=== PATIENT | female | born 1985 | race African-American/Black ===

== ENCOUNTER 2017-01-02 20:37 | Emergency (ER) | payer MEDICAID | END 2017-01-02 22:45 | disposition home or self-care (01) | LOC: D.ER 20:37 | DX: S90.121A Contusion of right lesser toe(s) without damage to nail, initial encounter (principal); W10.9XXA Fall (on) (from) unspecified stairs and steps, initial encounter; Y93.89 Activity, other specified; Y92.029 Unspecified place in mobile home as the place of occurrence of the external cause; F17.200 Nicotine dependence, unspecified, uncomplicated ==

== ENCOUNTER 2017-03-02 04:10 | Emergency (ER) | payer MEDICAID | END 2017-03-02 05:16 | disposition home or self-care (01) | LOC: D.ER 04:10 | DX: M25.561 Pain in right knee (principal); F17.200 Nicotine dependence, unspecified, uncomplicated ==

== ENCOUNTER 2017-04-05 09:46 | Emergency (ER) | payer MEDICAID ==
[2017-04-05 10:41] LABS: BASOPHILS 0 % (0-2); EOSINOPHILS 0.5 % (0-7); HEMATOCRIT 38.8 % (36.0-48.0); HEMOGLOBIN 12.7 g/dL (12-16); IMMATURE GRANULOCYTES 0.1 % (0-5); LYMPHOCYTES 24.7 % (15-50); MCH 27.7 pg (26.0-34.0); MCHC 32.7 g/dL (31.0-37.0); MCV 84.7 fL (80.0-100.0); MEAN PLATELET VOLUME 11.2 fL (7.4-10.4); MONOCYTES 6.4 % (2-11); NEUTROPHILS 68.3 % (40-80); RBC 4.58 10x6/uL (4.00-5.40); RDW 14.3 % (11.5-14.5); WBC 7.8 10x3/uL (4.8-10.8)
[2017-04-05 10:54] LABS: PLATELET COUNT 212 10x3/uL (130-400)
[2017-04-05 11:00] LABS: ALBUMIN 3.9 g/dL (3.4-5.0); ALKALINE PHOSPHATASE 43 U/L (46-116); ALT (SGPT) 19 U/L (10-68); BILIRUBIN - TOTAL 0.47 mg/dL (0.2-1.3); CALC OSMOLALITY 272 mosm/kg (275-300); CALCIUM 9.5 mg/dL (8.5-10.1); CARBON DIOXIDE 28.6 mmol/L (21.0-32.0); CHLORIDE - SERUM 102 mmol/L (98-107); CREATININE - SERUM 0.6 mg/dL (0.6-1.3); GLUCOSE 99 mg/dL (74-106); POTASSIUM - SERUM 3.4 mmol/L (3.5-5.1); PROTEIN - SERUM 7.6 g/dL (6.4-8.2); SODIUM 137 mmol/L (136-145); UREA NITROGEN 10 mg/dL (7-18); eGFR NON AFRICAN AMERICAN > 90 mL/min (90-120)
[2017-04-05 11:08] LABS: HCG URINE NEGATIVE (NEGATIVE)
[2017-04-05 11:12] LABS: APPEARANCE HAZY (CLEAR); BILIRUBIN NEGATIVE (NEGATIVE); COLOR YELLOW (YELLOW); GLUCOSE NEGATIVE (NEGATIVE); KETONE MODERATE mg/dL (NEGATIVE); NITRITE NEGATIVE (NEGATIVE); PROTEIN TRACE mg/dL (NEGATIVE); SPECIFIC GRAVITY 1.015 (1.005-1.020); UDS - AMPHET NEGATIVE QUAL (NEGATIVE); UDS - BARB NEGATIVE QUAL (NEGATIVE); UDS - BENZO NEGATIVE QUAL (NEGATIVE); UDS - COCAINE NEGATIVE QUAL (NEGATIVE); UDS - OPIATE NEGATIVE QUAL (NEGATIVE); UDS - PCP NEGATIVE QUAL (NEGATIVE); UDS - THC POSITIVE QUAL (NEGATIVE)
[2017-04-05 11:13] LABS: BACTERIA MODERATE /hpf (NONE SEEN); MUCUS >1+ /lpf (NONE SEEN); RED CELLS - URINE 0-5 /hpf (0-5); WAXY CAST RARE /lpf (NONE SEEN); WHITE CELLS - URINE 0-5 /hpf (0-5)
[2017-04-05 11:14] LABS: EPITHELIAL CELLS 0-5 /hpf (0-5)
== END 2017-04-05 14:30 | disposition home or self-care (01) ==
LOC: D.ER 09:46
PROVIDERS: Emergency Medicine
DX: F32.9 Major depressive disorder, single episode, unspecified (principal); F17.200 Nicotine dependence, unspecified, uncomplicated

== ENCOUNTER 2017-11-22 06:22 | Emergency (ER) | payer MEDICAID ==
[~2017-11-22] VITALS: Ht 165.1 cm; Wt 77.3 kg
[2017-11-22 06:28] VITALS: Ht 165.1 cm; Wt 77.3 kg
[2017-11-22 08:31] VITALS: BP 122/73
== END 2017-11-22 08:32 | disposition home or self-care (01) ==
LOC: D.ER 06:22
DX: R11.10 Vomiting, unspecified (principal); R10.9 Unspecified abdominal pain; R19.7 Diarrhea, unspecified; F17.200 Nicotine dependence, unspecified, uncomplicated

== ENCOUNTER 2017-11-24 07:40 | Emergency (ER) | payer MEDICAID ==
[~2017-11-24] VITALS: Ht 165.1 cm; Wt 72.7 kg
[2017-11-24 07:48] VITALS: Ht 165.1 cm; Wt 72.7 kg
[2017-11-24 08:23] LABS: BASOPHILS 0 % (0-2); EOSINOPHILS 4.8 % (0-7); HEMATOCRIT 38.9 % (36.0-48.0); IMMATURE GRANULOCYTES 0.2 % (0-5); LYMPHOCYTES 23.3 % (15-50); MCH 27.7 pg (26.0-34.0); MCHC 33.4 g/dL (31.0-37.0); MCV 82.8 fL (80.0-100.0); MEAN PLATELET VOLUME 10.7 fL (7.4-10.4); MONOCYTES 11.3 % (2-11); NEUTROPHILS 60.4 % (40-80); PLATELET COUNT 191 10x3/uL (130-400); RDW 14.4 % (11.5-14.5); WBC 5.4 10x3/uL (4.8-10.8)
[2017-11-24 08:43] LABS: ALBUMIN 3.5 g/dL (3.4-5.0); ALKALINE PHOSPHATASE 47 U/L (46-116); ALT (SGPT) 15 U/L (10-68); AMYLASE - SERUM 42 U/L (25-115); BILIRUBIN - TOTAL 0.46 mg/dL (0.2-1.3); CALC OSMOLALITY 268 mosm/kg (275-300); CALCIUM 8.4 mg/dL (8.5-10.1); CARBON DIOXIDE 23.8 mmol/L (21.0-32.0); CHLORIDE - SERUM 104 mmol/L (98-107); CREATININE - SERUM 0.8 mg/dL (0.6-1.3); GLUCOSE 86 mg/dL (74-106); LIPASE 81 U/L (73-393); POTASSIUM - SERUM 3.6 mmol/L (3.5-5.1); PROTEIN - SERUM 7.5 g/dL (6.4-8.2); SODIUM 135 mmol/L (136-145); UREA NITROGEN 13 mg/dL (7-18); eGFR NON AFRICAN AMERICAN 87 mL/min (90-120)
[2017-11-24 09:58] LABS: APPEARANCE HAZY (CLEAR); BILIRUBIN NEGATIVE (NEGATIVE); COLOR YELLOW (YELLOW); GLUCOSE NEGATIVE (NEGATIVE); HCG URINE NEGATIVE (NEGATIVE); KETONE SMALL mg/dL (NEGATIVE); NITRITE NEGATIVE (NEGATIVE); PROTEIN TRACE mg/dL (NEGATIVE); UROBILINOGEN NORMAL (NORMAL)
[2017-11-24 09:59] LABS: BACTERIA MODERATE /hpf (NONE SEEN); EPITHELIAL CELLS 0-5 /hpf (0-5); MUCUS >1+ /lpf (NONE SEEN); RED CELLS - URINE 0-5 /hpf (0-5); WHITE CELLS - URINE 0-5 /hpf (0-5)
[2017-11-24 10:02] LABS: UDS - AMPHET NEGATIVE QUAL (NEGATIVE); UDS - BARB NEGATIVE QUAL (NEGATIVE); UDS - BENZO NEGATIVE QUAL (NEGATIVE); UDS - COCAINE NEGATIVE QUAL (NEGATIVE); UDS - OPIATE POSITIVE QUAL (NEGATIVE); UDS - PCP NEGATIVE QUAL (NEGATIVE); UDS - THC POSITIVE QUAL (NEGATIVE)
[2017-11-24 11:31] VITALS: BP 135/82
== END 2017-11-24 11:32 | disposition home or self-care (01) ==
LOC: D.ER 07:40
PROVIDERS: Family Medicine
DX: R10.9 Unspecified abdominal pain (principal); F17.200 Nicotine dependence, unspecified, uncomplicated

== ENCOUNTER 2018-04-01 03:31 | Emergency (ER) | payer MEDICAID ==
[~2018-04-01] VITALS: Ht 165.1 cm; Wt 88.6 kg
[2018-04-01 03:37] VITALS: Ht 165.1 cm; Wt 88.6 kg
[2018-04-01 04:10] LABS: APPEARANCE CLEAR (CLEAR); BILIRUBIN NEGATIVE (NEGATIVE); COLOR YELLOW (YELLOW); GLUCOSE NEGATIVE (NEGATIVE); KETONE NEGATIVE (NEGATIVE); NITRITE NEGATIVE (NEGATIVE); PH 5.5 (5.0-6.0); PROTEIN NEGATIVE (NEGATIVE); UROBILINOGEN NORMAL (NORMAL)
[2018-04-01 04:14] LABS: BASOPHILS 0.3 % (0-2); EOSINOPHILS 4.2 % (0-7); HEMATOCRIT 32.8 % (36.0-48.0); HEMOGLOBIN 10.4 g/dL (12-16); IMMATURE GRANULOCYTES 0.2 % (0-5); LYMPHOCYTES 32.3 % (15-50); MCH 26.2 pg (26.0-34.0); MCHC 31.7 g/dL (31.0-37.0); MCV 82.6 fL (80.0-100.0); MEAN PLATELET VOLUME 10.2 fL (7.4-10.4); MONOCYTES 6.4 % (2-11); NEUTROPHILS 56.6 % (40-80); PLATELET COUNT 184 10x3/uL (130-400); RBC 3.97 10x6/uL (4.00-5.40); RDW 14.3 % (11.5-14.5); WBC 5.8 10x3/uL (4.8-10.8)
[2018-04-01 04:16] LABS: UDS - AMPHET POSITIVE QUAL (NEGATIVE); UDS - BARB NEGATIVE QUAL (NEGATIVE); UDS - BENZO POSITIVE QUAL (NEGATIVE); UDS - COCAINE NEGATIVE QUAL (NEGATIVE); UDS - OPIATE NEGATIVE QUAL (NEGATIVE); UDS - PCP NEGATIVE QUAL (NEGATIVE); UDS - THC POSITIVE QUAL (NEGATIVE)
[2018-04-01 04:26] LABS: HCG SERUM NEGATIVE (NEGATIVE)
[2018-04-01 04:39] LABS: CALC OSMOLALITY 274 mosm/kg (275-300); CALCIUM 8.9 mg/dL (8.5-10.1); CHLORIDE - SERUM 102 mmol/L (98-107); CREATININE - SERUM 0.8 mg/dL (0.6-1.3); GLUCOSE 106 mg/dL (74-106); POTASSIUM - SERUM 3.7 mmol/L (3.5-5.1); SODIUM 137 mmol/L (136-145); THYROID STIMULATING HORMONE 5.98 uIU/mL (0.36-3.74); UREA NITROGEN 14 mg/dL (7-18); eGFR NON AFRICAN AMERICAN 87 mL/min (90-120)
[2018-04-01] MEDS ORDERED: CELEXA20 MG (06:00)
[2018-04-01 06:55] VITALS: BP 136/87
== END 2018-04-01 07:19 ==
LOC: D.ER 03:31
PROVIDERS: Family Medicine
DX: R45.851 Suicidal ideations (principal); F32.9 Major depressive disorder, single episode, unspecified

== ENCOUNTER 2018-04-29 05:30 | Emergency (ER) | payer MEDICAID ==
[~2018-04-29] VITALS: Ht 165.1 cm; Wt 90.9 kg
[~2018-04-29 05:30] MED LIST: CELEXA20 MG
[2018-04-29 05:34] VITALS: Ht 165.1 cm; Wt 90.9 kg
[2018-04-29] MEDS ORDERED: SEROQUEL400 MG PO (05:36)
[2018-04-29] MEDS ORDERED: PRINIVIL20 MG PO (05:37)
[2018-04-29] MEDS ORDERED: XANAX1 MG PO (06:03)
[2018-04-29] MEDS ORDERED: HYDROCODON-ACE1 EAC7 PO (06:03)
[2018-04-29] MEDS ORDERED: KEFLEX500 MG PO (06:03)
[2018-04-29 06:24] VITALS: BP 142/85
== END 2018-04-29 06:24 | disposition home or self-care (01) ==
LOC: D.ER 05:30
DX: K08.89 Other specified disorders of teeth and supporting structures (principal); F41.9 Anxiety disorder, unspecified; K02.9 Dental caries, unspecified; I10 Essential (primary) hypertension

== ENCOUNTER 2018-04-30 22:45 | Emergency (ER) | payer MEDICAID ==
[~2018-04-30 22:45] MED LIST changes: +HYDROCODON-ACE1 EAC7 PO; +KEFLEX500 MG PO; +PRINIVIL20 MG PO; +SEROQUEL400 MG PO; +XANAX1 MG PO
[2018-04-30 22:59] VITALS: Ht 165.1 cm
[2018-05-01 00:21] VITALS: BP 137/91
== END 2018-05-01 00:21 | disposition home or self-care (01) ==
LOC: D.ER 22:45
DX: F41.9 Anxiety disorder, unspecified (principal); F17.200 Nicotine dependence, unspecified, uncomplicated

== ENCOUNTER 2018-08-29 20:25 | Emergency (ER) | payer MEDICAID ==
[~2018-08-29] VITALS: Ht 165.1 cm; Wt 93.6 kg
[2018-08-29 20:37] VITALS: Ht 165.1 cm; Wt 93.6 kg
[2018-08-29] MEDS ORDERED: PROZAC10 MG PO (20:41)
[2018-08-29 22:17] VITALS: BP 132/72
== END 2018-08-29 22:17 | disposition home or self-care (01) ==
LOC: D.ER 20:25
DX: F43.20 Adjustment disorder, unspecified (principal)

== ENCOUNTER 2018-12-09 12:15 | Emergency (ER) | payer MEDICAID ==
[~2018-12-09] VITALS: Ht 165.1 cm; Wt 92.3 kg
[~2018-12-09 12:15] MED LIST changes: +PROZAC10 MG PO
[2018-12-09 12:23] VITALS: BP 148/100; Ht 165.1 cm; Wt 92.3 kg
[2018-12-09] MEDS ORDERED: ATIVAN0.5 MG PO (13:24)
== END 2018-12-09 13:32 | disposition home or self-care (01) ==
LOC: D.ER 12:15
DX: F43.20 Adjustment disorder, unspecified (principal)

== ENCOUNTER 2018-12-15 06:22 | Emergency (ER) | payer MEDICAID ==
[~2018-12-15] VITALS: Ht 165.1 cm; Wt 92.3 kg
[~2018-12-15 06:22] MED LIST changes: +ATIVAN0.5 MG PO
[2018-12-15 06:25] VITALS: Ht 165.1 cm; Wt 92.3 kg
[2018-12-15 06:55] VITALS: BP 138/85
== END 2018-12-15 06:56 | disposition home or self-care (01) ==
LOC: D.ER 06:22
DX: S46.812A Strain of other muscles, fascia and tendons at shoulder and upper arm level, left arm, initial encounter (principal); X58.XXXA Exposure to other specified factors, initial encounter; Y93.89 Activity, other specified; Y92.89 Other specified places as the place of occurrence of the external cause

== ENCOUNTER 2019-03-02 09:03 | Emergency (ER) | payer MEDICAID ==
[~2019-03-02] VITALS: Ht 165.1 cm; Wt 89.1 kg
[2019-03-02 09:23] VITALS: Ht 165.1 cm; Wt 89.1 kg
[2019-03-02] MEDS ORDERED: VISTARIL50 MG PO (12:06)
[2019-03-02 12:44] VITALS: BP 126/74
== END 2019-03-02 12:45 | disposition home or self-care (01) ==
LOC: D.ER 09:03
DX: F43.10 Post-traumatic stress disorder, unspecified (principal); X58.XXXA Exposure to other specified factors, initial encounter; F41.8 Other specified anxiety disorders; F32.9 Major depressive disorder, single episode, unspecified

== ENCOUNTER 2019-04-08 07:50 | Emergency (ER) | payer SELFPAY ==
[~2019-04-08] VITALS: Ht 165.1 cm; Wt 81.8 kg
[~2019-04-08 07:50] MED LIST changes: +VISTARIL50 MG PO
[2019-04-08 07:55] VITALS: Ht 165.1 cm; Wt 81.8 kg
[2019-04-08] MEDS ORDERED: AMBIEN10 MG PO (08:16)
--- NOTE | 2019-04-08 08:38 | NUR ---
According to the suicide assessment the patient does not require a 1:1 observation at this time. Provded her a suicide resource flyer.
[2019-04-08 08:49] VITALS: BP 140/92
== END 2019-04-08 08:50 | disposition home or self-care (01) ==
LOC: D.ER 07:50
DX: G47.00 Insomnia, unspecified (principal); F32.9 Major depressive disorder, single episode, unspecified; I10 Essential (primary) hypertension; Z72.0 Tobacco use

== ENCOUNTER 2019-08-08 03:23 | Emergency (ER) | payer SELFPAY ==
[~2019-08-08] VITALS: Ht 165.1 cm; Wt 81.8 kg
[~2019-08-08 03:23] MED LIST changes: +AMBIEN10 MG PO
[2019-08-08 03:29] VITALS: Ht 165.1 cm; Wt 81.8 kg
--- NOTE | 2019-08-08 05:09 | NUR ---
Unable to keep patient awake to assess patient at this time, will try again later when patient is not as sedated.
[2019-08-08 05:28] LABS: BASOPHILS 0.2 % (0-2); HEMOGLOBIN 11.3 g/dL (12-16); IMMATURE GRANULOCYTES 0.2 % (0-5); LYMPHOCYTES 15.8 % (15-50); MCH 26.2 pg (26.0-34.0); MCHC 31.4 g/dL (31.0-37.0); MCV 83.3 fL (80.0-100.0); MEAN PLATELET VOLUME 10.1 fL (7.4-10.4); MONOCYTES 6.8 % (2-11); RBC 4.32 10x6/uL (4.00-5.40); WBC 10.8 10x3/uL (4.8-10.8)
[2019-08-08 05:29] LABS: PLATELET COUNT 265 10x3/uL (130-400)
[2019-08-08 05:46] LABS: CALCIUM 8.9 mg/dL (8.5-10.1); CARBON DIOXIDE 23.8 mmol/L (21.0-32.0); CREATININE - SERUM 1.1 mg/dL (0.6-1.3); POTASSIUM - SERUM 3.8 mmol/L (3.5-5.1)
[2019-08-08 05:52] LABS: ALBUMIN 3.4 g/dL (3.4-5.0); BILIRUBIN - TOTAL 0.44 mg/dL (0.2-1.3); MAGNESIUM - SERUM 1.7 mg/dL (1.8-2.4); PROTEIN - SERUM 7.4 g/dL (6.4-8.2)
[2019-08-08 06:34] LABS: HCG URINE NEGATIVE (NEGATIVE)
[2019-08-08 06:57] LABS: GLUCOSE 50 mg/dL (NEGATIVE); NITRITE NEGATIVE (NEGATIVE); SPECIFIC GRAVITY 1.025 (1.005-1.020)
[2019-08-08 06:58] LABS: BILIRUBIN NEGATIVE (NEGATIVE); KETONE SMALL mg/dL (NEGATIVE); UROBILINOGEN NORMAL (NORMAL); WHITE CELLS - URINE 0-5 /hpf (NEGATIVE)
[2019-08-08 06:59] LABS: AMORPHOUS SEDIMENT <1+ /lpf (NONE SEEN); BACTERIA FEW /hpf (NEGATIVE); EPITHELIAL CELL CAST RARE /lpf (NONE SEEN); EPITHELIAL CELLS 0-5 /hpf (0-5); HYALINE CAST OCC /lpf (NONE SEEN); RED CELLS - URINE 0-5 /hpf (0-5)
[2019-08-08 07:31] LABS: UDS - AMPHET NEGATIVE QUAL (NEGATIVE); UDS - BARB NEGATIVE QUAL (NEGATIVE); UDS - BENZO POSITIVE QUAL (NEGATIVE); UDS - COCAINE POSITIVE QUAL (NEGATIVE); UDS - OPIATE NEGATIVE QUAL (NEGATIVE); UDS - PCP NEGATIVE QUAL (NEGATIVE); UDS - THC POSITIVE QUAL (NEGATIVE)
[2019-08-08 11:03] VITALS: BP 138/78
== END 2019-08-08 11:04 ==
LOC: D.ER 03:23
PROVIDERS: Family Medicine
DX: F23 Brief psychotic disorder (principal); F32.3 Major depressive disorder, single episode, severe with psychotic features; R45.851 Suicidal ideations; F19.10 Other psychoactive substance abuse, uncomplicated; I10 Essential (primary) hypertension

== ENCOUNTER 2019-10-07 19:41 | Emergency (ER) | payer SELFPAY ==
[~2019-10-07] VITALS: Ht 165.1 cm; Wt 89.1 kg
[2019-10-07 20:06] VITALS: Ht 165.1 cm; Wt 89.1 kg
[2019-10-07] MEDS ORDERED: TORADOL10 MG PO (21:09)
[2019-10-07 21:42] VITALS: BP 139/81
== END 2019-10-07 21:42 | disposition home or self-care (01) ==
LOC: D.ER 19:41
DX: S63.501A Unspecified sprain of right wrist, initial encounter (principal); S60.511A Abrasion of right hand, initial encounter; S60.221A Contusion of right hand, initial encounter; I10 Essential (primary) hypertension; Z72.0 Tobacco use; W22.8XXA Striking against or struck by other objects, initial encounter; Y93.9 Activity, unspecified; Y92.9 Unspecified place or not applicable

== ENCOUNTER 2019-10-12 09:26 | Emergency (ER) | payer SELFPAY ==
[~2019-10-12] VITALS: Ht 165.1 cm; Wt 88.6 kg
[~2019-10-12 09:26] MED LIST changes: +TORADOL10 MG PO
[2019-10-12 09:32] VITALS: Ht 165.1 cm; Wt 88.6 kg
[2019-10-12] MEDS ORDERED: AUGMENTIN 875-11 TAB PO (11:44)
[2019-10-12] MEDS ORDERED: VOLTAREN75 MG PO (11:44)
[2019-10-12 12:33] VITALS: BP 145/91
== END 2019-10-12 12:34 | disposition home or self-care (01) ==
LOC: D.ER 09:26
DX: S91.351A Open bite, right foot, initial encounter (principal); W54.0XXA Bitten by dog, initial encounter; Y93.9 Activity, unspecified; Y92.9 Unspecified place or not applicable; I10 Essential (primary) hypertension; Z72.0 Tobacco use

== ENCOUNTER 2020-06-22 15:22 | Emergency (ER) | payer SELFPAY ==
[~2020-06-22 15:22] MED LIST changes: +AUGMENTIN 875-11 TAB PO; +TRAZODONE HCL150 MG PO; +VOLTAREN75 MG PO
[2020-06-22 15:40] VITALS: Ht 165.1 cm
== END 2020-06-22 15:42 | disposition left against medical advice (07) ==
LOC: D.ER 15:22
DX: Z71.1 Person with feared health complaint in whom no diagnosis is made (principal)

== ENCOUNTER 2020-08-07 18:50 | Emergency (ER) | payer SELFPAY ==
[~2020-08-07] VITALS: Ht 165.1 cm; Wt 97.7 kg
[2020-08-07 19:08] VITALS: BP 154/111; Ht 165.1 cm; Wt 97.7 kg
[2020-08-07] MEDS ORDERED: AUGMENTIN 875-11 TAB PO (20:48)
== END 2020-08-07 21:47 | disposition home or self-care (01) ==
LOC: D.ER 18:50
DX: S81.851A Open bite, right lower leg, initial encounter (principal); W54.0XXA Bitten by dog, initial encounter; Y93.9 Activity, unspecified; Y92.9 Unspecified place or not applicable; R51.9 Headache, unspecified; F32.9 Major depressive disorder, single episode, unspecified

== ENCOUNTER 2020-08-24 21:55 | Emergency (ER) | payer SELFPAY ==
[~2020-08-24] VITALS: Ht 165.1 cm; Wt 90.9 kg
[2020-08-24 22:09] VITALS: Ht 165.1 cm; Wt 90.9 kg
[2020-08-24] MEDS ORDERED: OMNICEF300 MG PO (23:48)
[2020-08-25 00:05] VITALS: BP 158/99
== END 2020-08-24 23:57 | disposition home or self-care (01) ==
LOC: D.ER 21:55
DX: H66.93 Otitis media, unspecified, bilateral (principal); R51.9 Headache, unspecified; D17.0 Benign lipomatous neoplasm of skin and subcutaneous tissue of head, face and neck; Z72.0 Tobacco use

== ENCOUNTER 2020-09-17 12:05 | Emergency (ER) | payer SELFPAY ==
[~2020-09-17] VITALS: Ht 165.1 cm; Wt 100.0 kg
[~2020-09-17 12:05] MED LIST changes: +OMNICEF300 MG PO
[2020-09-17 12:10] VITALS: Ht 165.1 cm; Wt 100.0 kg
[2020-09-17] MEDS ORDERED: DICLOFENAC SODI50 MG PO (13:21)
[2020-09-17 13:50] VITALS: BP 148/86
== END 2020-09-17 13:51 | disposition home or self-care (01) ==
LOC: D.ER 12:05
DX: M23.92 Unspecified internal derangement of left knee (principal); M25.562 Pain in left knee